=== PATIENT | male | born 2000 | race Caucasian/White ===

== ENCOUNTER 2019-01-26 17:50 | Emergency (ER) | payer OTHER ==
[~2019-01-26] VITALS: Ht 175.3 cm; Wt 199.1 kg
[2019-01-26 18:07] VITALS: Ht 175.3 cm; Wt 199.1 kg
[2019-01-26 21:38] VITALS: BP 155/80
== END 2019-01-26 21:38 | disposition home or self-care (01) ==
LOC: ED 17:50
DX: S16.1XXA Strain of muscle, fascia and tendon at neck level, initial encounter (principal); S39.012A Strain of muscle, fascia and tendon of lower back, initial encounter; I10 Essential (primary) hypertension; W18.30XA Fall on same level, unspecified, initial encounter; Y93.89 Activity, other specified; Y92.89 Other specified places as the place of occurrence of the external cause; Y99.8 Other external cause status
CPT/HCPCS: J1885; Q0162

== ENCOUNTER 2020-03-11 16:41 | Emergency (ER) | payer OTHER, SELFPAY ==
[~2020-03-11] VITALS: Ht 182.9 cm; Wt 181.4 kg
[2020-03-11 18:17] VITALS: Ht 182.9 cm; Wt 181.4 kg
[2020-03-11 18:19] VITALS: BP 163/89
== END 2020-03-11 18:19 | disposition home or self-care (01) ==
LOC: ED 16:41
DX: U07.1 COVID-19 (principal); B34.9 Viral infection, unspecified
CPT/HCPCS: U0003-CS

== ENCOUNTER 2020-03-25 20:09 | Emergency (ER) | payer OTHER ==
[~2020-03-25] VITALS: Ht 185.4 cm; Wt 195.0 kg
[2020-03-25 20:13] VITALS: Ht 185.4 cm; Wt 195.0 kg
[2020-03-25 21:03] LABS: microscopic required? YES; urine erythrocyte 3+ (NEGATIVE)
[2020-03-25 22:52] VITALS: BP 117/73
== END 2020-03-25 22:52 | disposition home or self-care (01) ==
LOC: ED 20:09
PROVIDERS: Student in an Organized Health Care Education/Training Program
DX: R31.9 Hematuria, unspecified (principal); M54.5 Low back pain; R30.9 Painful micturition, unspecified
CPT/HCPCS: 82962; J1885

== ENCOUNTER 2020-04-02 21:37 | Emergency (ER) | payer OTHER ==
[~2020-04-02] VITALS: Ht 185.4 cm; Wt 197.0 kg
[2020-04-02 21:47] VITALS: Ht 185.4 cm; Wt 197.0 kg
[2020-04-02 22:54] LABS: CALCIUM 8.8 mg/dL (8.5-10.1); CHLORIDE SERUM 107 mmol/L (98-107); CREATININE SERUM 1.1 mg/dL (0.7-1.3); GFR1 > 60 mL/min; GLUCOSE SERUM 119 mg/dL (74-106); POTASSIUM SERUM 3.5 mmol/L (3.5-5.1); SODIUM SERUM 142 mmol/L (136-145)
[2020-04-02 22:57] LABS: BASOPHIL % 0.6 % (0-2); PLATELET COUNT 210 x10^3mcL (130-400)
[2020-04-02 22:58] LABS: ALKALINE PHOSPHATASE 57 U/L (46-116); ALT/SGPT 178 U/L (16-63); AST/SGOT 78 U/L (15-37); BILIRUBIN TOTAL 0.38 mg/dL (0.20-1.00)
[2020-04-02 23:02] LABS: ALBUMIN 3.1 g/dL (3.4-5.0)
[2020-04-03 00:49] VITALS: BP 117/62
== END 2020-04-03 00:49 | disposition home or self-care (01) ==
LOC: ED 21:37
PROVIDERS: Emergency Medicine
DX: N23 Unspecified renal colic (principal)
CPT/HCPCS: J1885; J7030

== ENCOUNTER 2020-08-18 16:20 | Emergency (ER) | payer OTHER ==
[~2020-08-18] VITALS: Ht 175.3 cm; Wt 215.9 kg
[2020-08-18 16:37] VITALS: Ht 175.3 cm; Wt 215.9 kg
[2020-08-18 17:10] LABS: microscopic required? NO
[2020-08-18 17:45] LABS: urine erythrocyte NEGATIVE (NEGATIVE)
[2020-08-18 18:01] LABS: BASOPHIL % 0.6 % (0.2-1.5); PLATELET COUNT 273 x10^3mcL (152-348); RED CELL DISTRIBUTION WIDTH 13.3 % (12.1-16.2)
[2020-08-18 18:15] LABS: ALBUMIN 3.7 g/dL (3.4-5.0); ALKALINE PHOSPHATASE 71 U/L (46-116); ALT/SGPT 53 U/L (16-63); AST/SGOT 20 U/L (15-37); BILIRUBIN TOTAL 0.3 mg/dL (0.20-1.00); CARBON DIOXIDE 26.2 mmol/L (21-32); CHLORIDE SERUM 103 mmol/L (98-107); CREATININE SERUM 0.8 mg/dL (0.7-1.3); GFR1 > 60 mL/min; GLUCOSE SERUM 94 mg/dL (74-106); LIPASE 60 IU/L (73-393); POTASSIUM SERUM 3.9 mmol/L (3.5-5.1); SODIUM SERUM 140 mmol/L (136-145); TOTAL PROTEIN, SERUM 8.2 g/dL (6.4-8.2)
[2020-08-18 19:00] LABS: CALCIUM 9.5 mg/dL (8.5-10.1)
[2020-08-18 20:23] VITALS: BP 160/95
== END 2020-08-18 20:23 | disposition home or self-care (01) ==
LOC: ED 16:20
PROVIDERS: Emergency Medicine
DX: R30.0 Dysuria (principal); R10.9 Unspecified abdominal pain; Z87.442 Personal history of urinary calculi
CPT/HCPCS: 87491; 87591

== ENCOUNTER 2020-09-05 08:43 | Emergency (ER) | payer OTHER ==
[~2020-09-05] VITALS: Ht 175.3 cm; Wt 213.6 kg
[2020-09-05 09:07] VITALS: Ht 175.3 cm; Wt 213.6 kg
[2020-09-05 09:45] LABS: BASOPHIL % 0.8 % (0.2-1.5); PLATELET COUNT 265 x10^3mcL (152-348)
[2020-09-05 10:10] LABS: ALBUMIN 3.7 g/dL (3.4-5.0); ALKALINE PHOSPHATASE 63 U/L (46-116); ALT/SGPT 63 U/L (16-63); AST/SGOT 28 U/L (15-37); BILIRUBIN TOTAL 0.6 mg/dL (0.20-1.00); CALCIUM 9.3 mg/dL (8.5-10.1); CARBON DIOXIDE 27.3 mmol/L (21-32); CHLORIDE SERUM 104 mmol/L (98-107); CREATININE SERUM 0.7 mg/dL (0.7-1.3); GFR1 > 60 mL/min; GLUCOSE SERUM 94 mg/dL (74-106); LIPASE 57 IU/L (73-393); POTASSIUM SERUM 3.9 mmol/L (3.5-5.1); SODIUM SERUM 139 mmol/L (136-145); TOTAL PROTEIN, SERUM 8.1 g/dL (6.4-8.2)
[2020-09-05 11:46] VITALS: BP 131/88
== END 2020-09-05 11:39 | disposition home or self-care (01) ==
LOC: ED 08:43
PROVIDERS: Emergency Medicine
DX: R10.32 Left lower quadrant pain (principal); E66.01 Morbid (severe) obesity due to excess calories; Z87.442 Personal history of urinary calculi